=== PATIENT | male | born 1995 | race Caucasian/White ===

== ENCOUNTER 2020-05-25 05:45 | Emergency (ER) | payer OTHER ==
[~2020-05-25] VITALS: Ht 180.3 cm; Wt 75.8 kg
[2020-05-25] MEDS ORDERED: DEPAKOTE250 MG PO (06:27)
[2020-05-25] MEDS ORDERED: OLANZAPINE2.5 MG PO (06:28)
[2020-05-25 07:16] LABS: HEMATOCRIT 46.9 % (42.0-52.0); HEMOGLOBIN 15.8 gm/dL (14.0-18.0); MCH 30.9 pg (26.0-34.0); MCHC 33.7 g/dL (28.0-37.0); MCV 91.7 fL (80.0-100.0); MPV 8.8 fl. (7.2-11.1); NUCLEATED RBCS 0 /100WBC; PLATELET COUNT* 305 thou/uL (150-400); RBC 5.11 mil/uL (4.50-6.00); RDW-CV 13.7 % (10.5-14.5); WBC 21.4 thou/uL (4.0-11.0)
[2020-05-25 07:19] LABS: CALCIUM 9.2 mg/dL (8.5-10.1); CREATININE 1.3 mg/dL (0.6-1.3)
[2020-05-25 07:24] LABS: ALBUMIN 4.6 g/dL (3.4-5.0); TOTAL BILIRUBIN 0.9 mg/dL (<0.1-1.0); TOTAL PROTEIN 8.3 g/dL (6.4-8.2)
[2020-05-25 08:11] LABS: SALICYLATE 2.9 mg/dL (2.8-20.0)
[2020-05-25 08:19] LABS: ACETAMINOPHEN < 2 ug/mL (10-30); ALCOHOL < 10 mg/dL (<10)
[2020-05-25 09:02] LABS: URINE BILIRUBIN NEGATIVE (Negative); URINE BLOOD TRACE (Negative); URINE CLARITY CLEAR; URINE COLOR YELLOW; URINE GLUCOSE-RANDOM NEGATIVE (Negative); URINE KETONES 1+ (Negative); URINE LEUKOCYTES-REFLEX NEGATIVE (Negative); URINE NITRITE-REFLEX NEGATIVE (Negative); URINE PROTEIN TRACE (Negative); URINE UROBILINOGEN 0.2 E.U./dl (0.2-1.0)
[2020-05-25 09:09] LABS: AMP/METHAMP POSITIVE (Negative); BARBITURATES Negative (Negative); BENZODIAZEPINES Negative (Negative); COCAINE Negative (Negative); METHADONE Negative (Negative); OPIATES Negative (Negative); PCP Negative (Negative); THC POSITIVE (Negative)
[2020-05-25 09:27] LABS: ABSOLUTE LYMPHOCYTES 2.6 thou/uL (0.8-5.3); ABSOLUTE MONOCYTES 1.9 thou/uL (0.0-1.2); ABSOLUTE NEUTROPHILS 16.9 thou/uL (1.6-8.1); PLATELET ESTIMATE ADEQUATE
[2020-05-26 18:31] LABS: ABSOLUTE BASOPHILS 0.1 thou/uL (0.0-0.2); ABSOLUTE EOSINOPHILS 0.3 thou/uL (0.0-0.7); ABSOLUTE LYMPHOCYTES 2.6 thou/uL (0.8-5.3); ABSOLUTE MONOCYTES 1.6 thou/uL (0.0-1.2); ABSOLUTE NEUTROPHILS 7.3 thou/uL (1.6-8.1); BASOPHILS 0.5 %; EOSINOPHILS 2.3 %; HEMATOCRIT 46.7 % (42.0-52.0); MCHC 34.2 g/dL (28.0-37.0); MCV 90.6 fL (80.0-100.0); MONOCYTES 13.7 %; MPV 8.6 fl. (7.2-11.1); NUCLEATED RBCS 0 /100WBC; PLATELET COUNT* 260 thou/uL (150-400); POLYS 61.5 %; RBC 5.15 mil/uL (4.50-6.00); RDW-CV 14.2 % (10.5-14.5); WBC 11.9 thou/uL (4.0-11.0)
--- NOTE | 2020-05-27 08:59 | EKG ---
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[place] : 1995 Requested By: Lissy Burns Order Number: [id number] MD: Kurt Eisenberg Measurements Intervals [place] Rate: 111 P: 78 CA: 124 QRS: 58 QRSD: 86 T: 51 QT: 353 QTc: 480 Interpretive Statements Sinus tachycardia Borderline prolonged QT interval No previous ECG available for comparison Electronically Signed On 05-27-2020 8:59:28 [employer]CH [employer] by Kurt Eisenberg [email or web address] <ELECTRONICALLY SIGNED> By: Matheus Eisenberg MD, [facility] 05/27/20 0859 Matheus Eisenberg MD, [facility] /EPI
[2020-05-27 22:00] LABS: ABSOLUTE BASOPHILS 0.1 thou/uL (0.0-0.2); ABSOLUTE EOSINOPHILS 0.1 thou/uL (0.0-0.7); ABSOLUTE LYMPHOCYTES 2.1 thou/uL (0.8-5.3); ABSOLUTE MONOCYTES 1.2 thou/uL (0.0-1.2); ABSOLUTE NEUTROPHILS 7.6 thou/uL (1.6-8.1); EOSINOPHILS 0.8 %; HEMATOCRIT 42.4 % (42.0-52.0); HEMOGLOBIN 14.7 gm/dL (14.0-18.0); MCH 31.2 pg (26.0-34.0); MCHC 34.7 g/dL (28.0-37.0); MONOCYTES 11.1 %; MPV 8.7 fl. (7.2-11.1); NUCLEATED RBCS 0 /100WBC; PLATELET COUNT* 230 thou/uL (150-400); POLYS 68.1 %; RBC 4.71 mil/uL (4.50-6.00); RDW-CV 13.8 % (10.5-14.5); WBC 11.1 thou/uL (4.0-11.0)
[2020-05-27 22:10] LABS: ANION GAP 13 mmol/L (7-16); BUN 14 mg/dL (7-18); CALCIUM 8.2 mg/dL (8.5-10.1); CHLORIDE 100 mmol/L (98-107); CO2 23 mmol/L (21-32); CREATININE 0.9 mg/dL (0.6-1.3); GLUCOSE 72 mg/dL (70-99); POTASSIUM 3.5 mmol/L (3.5-5.1); SODIUM 136 mmol/L (136-145)
[2020-05-27 22:14] LABS: ALBUMIN 3.8 g/dL (3.4-5.0); ALKALINE PHOSPHATASE 73 U/L (46-116); MAGNESIUM 2.2 mg/dL (1.8-2.4); SGOT 47 U/L (15-37); SGPT 37 U/L (30-65); TOTAL PROTEIN 7.2 g/dL (6.4-8.2)
[2020-05-27 22:18] LABS: BE -5.7 mmol/L (-2 to +3); PCO2 30.7 mmHg (35.0-45.0); pH 7.384 (7.340-7.450)
--- NOTE | 2020-05-28 15:38 | EKG ---
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 : 1995 Requested By: Steve Yang Order Number: [id number] MD: Matthias Pollard Measurements Intervals [place] Rate: 103 P: 87 MS: 119 QRS: 76 QRSD: 86 T: 75 QT: 341 QTc: 447 Interpretive Statements Sinus tachycardia Borderline Q waves in lateral leads Compared to ECG 05/25/2020 22:46:02 No significant changes Electronically Signed On 05-28-2020 15:38:00 [employer]STER [employer] by Matthias Pollard [email or web address] <ELECTRONICALLY SIGNED> By: Matthias Pollard MD, FACC 05/28/20 1538 1359 1359 Matthias Pollard MD, [facility] /EPI
[2020-05-29 09:35] VITALS: BP 90/44
== END 2020-05-29 09:36 ==
LOC: M.ERS 05:45
PROVIDERS: Emergency Medicine Emergency Medical Services; Family Medicine; Personal Emergency Response Attendant
DX: F29 Unspecified psychosis not due to a substance or known physiological condition (principal); R41.82 Altered mental status, unspecified; R45.851 Suicidal ideations; Z79.899 Other long term (current) drug therapy